=== PATIENT | male | born 1990 | race Caucasian/White ===

== ENCOUNTER 2020-07-09 21:21 | Emergency (ER) | payer OTHER ==
[2020-07-09] MEDS ORDERED: XYLOCAINE 1% HCL 20 ML MDV IJ ONE (21:22)
[2020-07-09] MEDS ORDERED: Erythromycin 3.5 GM OPHTH. OP ONE (21:48)
[2020-07-09] MEDS ORDERED: Rocephin 1000 MG INJ IM ONE (21:51)
--- NOTE | 2020-07-09 21:58 | ERPHSYRPT ---
- History of Present Illness Time Seen by Provider: 07/09/20 21:54 Source: patient Exam Limitations: no limitations Patient Subjective Stated Complaint: pt states "I woke up yesterday and my eye was swollen." Triage Nursing Assessment: pt ambulated into the er; pt is axo x4; c/o eye injury; pt states 4/10 pain to left eye; pt has purlent drainage to left eye; swelling to left eye; pt unable to open left eye; unable to assess eye due to pain and swelling; left eye is red; pt states he is currently on bactrim for a UTI; pt is hypertensive; afebrile; tachycardic Physician History: pt states "I woke up yesterday and my eye was swollen." c/o eye injury; pt states 4/10 pain to left eye; pt has purlent drainage to left eye; swelling to left eye; pt unable to open left eye; unable to assess eye due to pain and swelling; left eye is red; pt states he is currently on bactrim for a UTI; pt is hypertensive; c/o hazzy vision left eye. painful left eyeball Timing/Duration: yesterday Location: left eye Severity: moderate Apparent Injury: possibly Associated Symptoms: pain, burning, sensitivity to light, redness, matting, eyelid swelling, foreign body sensation, decreased vision, blurred vision Visual Assistive Devices: None Chemical Exposure: No Trauma: Yes Welding Arc/Tanning Bed Exposure: No Allergies/Adverse Reactions: No Known Drug Allergies Allergy (Unverified 07/09/20 21:23) Hx Tetanus, Diphtheria Vaccination/Date Given: Yes Hx Influenza Vaccination/Date Given: No Hx Pneumococcal Vaccination/Date Given: No Travel Risk - International Travel Have you traveled outside of the country in past 3 weeks: No - Coronavirus Screening Are you exhibiting any of the following symptoms?: No Close contact with a COVID-19 positive Pt in past 14-21 Days: No - Vaccine Status Have you recieved a Covid-19 vaccination: No - Review of Systems Constitutional: No Symptoms Eyes: Discharge, Eye Pain, Eye Redness, Tearing, Vision Changes, Foreign Body Sensation Ears, Nose, & Throat: No Symptoms Respiratory: No Symptoms Cardiac: No Symptoms Abdominal/Gastrointestinal: No Symptoms Genitourinary Symptoms: No Symptoms Musculoskeletal: No Symptoms Skin: No Symptoms Neurological: No Symptoms Psychological: No Symptoms Endocrine: No Symptoms - Past Medical History Pertinent Past Medical History: No - Past Surgical History Past Surgical History: No - Social History Smoking Status: Current every day smoker Exposure to second hand smoke: Yes Drug Use: methamphetamines Patient Lives Alone: No - Nursing Vital Signs Nursing Vital Signs: Initial Vital Signs Temperature 98.1 F 07/09/20 21:24 Pulse Rate 107 H 07/09/20 21:24 Respiratory Rate 16 07/09/20 21:24 Blood Pressure 156/111 07/09/20 21:24 O2 Sat by Pulse Oximetry 99 07/09/20 21:24 Pain Scale Pain Intensity 4 - Physical Exam General Appearance: mild distress Vision Acuity Degree Evaluation Phase: Uncorrected Vision Acuity Left Eye: hazzy Eye Exam: left eye: exudate, eyelid inflammation, hyphema, sucutaneous orbital emphysema, vision changes Ears, Nose, Throat Exam: normal ENT inspection Neck Exam: normal inspection Respiratory Exam: normal breath sounds Cardiovascular Exam: regular rate/rhythm Gastrointestinal Exam: soft Extremity Exam: normal inspection Neurologic: alert, oriented x 3 SpO2: 99 - Course Nursing assessment & vital signs reviewed: Yes - CT Exams Other CT Interpretation: Tele-radiologist Report (CT orbit) Ordered Tests: Active Orders 24 hr Category Date Time Status ORBITS WITHOUT CONTRAST [CT] Stat Exams 07/09/20 21:48 Taken BMP Stat Lab 07/09/20 22:15 Completed CBC W DIFF Stat Lab 07/09/20 22:15 Completed Manual Differential NC Stat Lab 07/09/20 22:15 Completed Medication Summary Discontinued Medications Generic Name Dose Route Start Last Admin Trade Name Vladq PRN Reason Stop Dose Admin Ceftriaxone Sodium 1,000 mg 07/09/20 21:51 07/09/20 22:08 Rocephin 1000 Mg Inj IM 07/09/20 21:52 1,000 mg STAT ONE Administration Ceftriaxone Sodium Confirm 07/09/20 22:03 Rocephin 1000 Mg Inj Administered 07/09/20 22:04 Dose 1,000 mg .ROUTE .STK-MED ONE Erythromycin 3.5 gm 07/09/20 21:48 07/09/20 22:36 Erythromycin 3.5 Gm Ophth. OP 07/09/20 21:49 3.5 gm STAT ONE Administration Lab/Rad Data: Laboratory Result Diagrams 07/09/20 22:15 07/09/20 22:15 Laboratory Results 07/09/20 07/09/20 Range/Units 22:15 22:15 WBC 13.1 H (4.0-10.5) K/mm3 RBC 5.13 (4.1-5.6) M/mm3 Hgb 15.5 (12.5-18.0) gm/dl Hct 47.6 (42-50) % MCV 92.8 (78-100) fl MCH 30.2 (26-32) pg MCHC 32.6 (32-36) g/dl RDW 13.3 (11.5-14.0) % Plt Count 308 (150-450) K/mm3 MPV 8.7 (7.5-11.0) fl Sodium 139 (137-145) mmol/L Potassium 4.5 (3.5-5.1) mmol/L Chloride 102 (98-107) mmol/L Carbon Dioxide 30 (22-30) mmol/L Anion Gap 12.1 (5-15) MEQ/L BUN 10 (9-20) mg/dL Creatinine 0.91 (0.66-1.25) mg/dL Estimated GFR > 60.0 ML/MIN Glucose 95 (74-106) mg/dL Calcium 9.4 (8.4-10.2) mg/dL - Progress Progress: unchanged Counseled pt/family regarding: lab results, diagnosis, need for follow-up, rad results - Departure Departure Disposition: Home Clinical Impression: Orbital cellulitis on left Dacrocystitis Qualifiers: Laterality: left Qualified Code(s): H04.302 - Unspecified dacryocystitis of left lacrimal passage Condition: Stable Critical Care Time: No Referrals: DOCTOR,NO FAMILY [Primary Care Provider] - Follow Up with PCP/3 days Instructions: Orbital Cellulitis (DC) Additional Instructions: Follow-up with rf design engineer or wheel truer on Saturday MART for further work- up. Please start antibiotic eyedrops as well as oral antibiotic tomorrow. Discharge/Care Plan AYUSH ALEMAN was seen on 07/09/20 in the Emergency Room. The patient was counseled regarding Diagnosis,Lab results, Imaging studies, need for follow up and when to return to the Emergency Room. Prescriptions given: Discharge Note I have spoken with the patient and/or caregivers. I have explained the patient's condition, diagnosis and treatment plan based on the information available to me at this time. I have answered the patient's and/or caregiver's questions and addressed any concerns. The patient and/or caregivers have as good understanding of the patient's diagnosis, condition and treatment plan as can be expected at this point. The vital signs have been stable. The patient's condition is stable and appropriate for discharge from the emergency department. The patient will pursue further outpatient evaluation with the primary care physician or other designated or consulting physician as outlined in the discharge instructions. The patient and/or caregivers are agreeable to this plan of care and follow-up instructions have been explained in detail. The patient and/or caregivers have received these instruction. The patient/and or caregivers are aware that any significant change in condition or worsening of symptoms should prompt an immediate return to this or the closest emergency department or call 911. AYUSH ALEMAN was seen on 07/09/20 n the Emergency Room. At that time you were treated for an emergent condition, during your visit Laboratory, Radiology and/or other procedures may have been ordered. It is very important that you follow-up with your Primary Care Physician NO FAMILY DOCTOR within the next 24- 48 hours to review your Emergency Room visit and the final results of testing that was ordered. Some test results such as Urine Cultures, Blood Cultures, and other cultures if ordered will not be finalized for 24-48 hours. If you do not have a Primary Care Provider please call the medical records department at [phone] to obtain a copy of your results or you may sign into our patient portal to obtain these results by visiting us @ [email or web address] and completing the following steps: 1. Click on the Patient Portal link 2. Click the Patient Self Enrollment Link to complete the enrollment form and entering your 3. Once the enrollment form is completed you will receive an email with a temporary ID and password at the email address you provided. 4. Next choose a user name and password. Your user name must be at least 4 characters long and your password must be at least 4 characters long. 5. Choose a security question from the list and provide your answer to the question. If you already have signed into the Health Portal you may access your Health Care Information 17/09 by the following steps: 1. Login to our website @ [email or web address] 2. Enter your original user name and password. FAQS The [facility] Health Portal is an online tool that contains your Lab Results, Radiology Reports, Visit History, Discharge Instructions and Health Summary Lab and Radiology Results will not be available for 72 hours on the portal. The Portal is a secure site, passwords are encryted and URLs are re-written so they cannot be copied and pasted. You and authorized family members are the only ones who can access your Portal. Also there is a timeout feature that protects your information if you leave the Portal page open. If you have technical difficulty please use the Contact Us link on the page this will allow you to submit any questions you have regarding the Portal or you may contact the Medical Record Department at [phone] ext [phone]. Prescriptions: Ciprofloxacin 0.3% Ophth [Ciloxan OPHTH] 4 drops OP QID #10 bottle Cephalexin Mh 500 mg [Keflex 500 mg] 500 mg PO Q6H #40 capsule
[2020-07-09] MEDS ORDERED: Rocephin 1000 MG INJ ONE (22:03)
[2020-07-09 22:18] LABS: Hematocrit 47.6 % (42-50); Hemoglobin 15.5 gm/dl (12.5-18.0); Mean Cell Volume 92.8 fl (78-100); Mean Corpuscular Hemoglobin 30.2 pg (26-32); Mean Corpuscular Hgb Concent. 32.6 g/dl (32-36); Mean Platelet Volume 8.7 fl (7.5-11.0); Platelet Count 308 K/mm3 (150-450); Red Blood Count 5.13 M/mm3 (4.1-5.6); Red Cell Distribution Width 13.3 % (11.5-14.0); White Blood Count 13.1 K/mm3 (4.0-10.5)
[2020-07-09 22:30] LABS: ANION GAP 12.1 MEQ/L (5-15); BLOOD UREA NITROGEN 10 mg/dL (9-20); CHLORIDE 102 mmol/L (98-107); Calcium 9.4 mg/dL (8.4-10.2); Carbon Dioxide 30 mmol/L (22-30); Creatinine 1 0.91 mg/dL (0.66-1.25); EST GLOMERULAR FILTRATION RATE > 60.0 ML/MIN; Glucose 95 mg/dL (74-106); Potassium 4.5 mmol/L (3.5-5.1); SODIUM 139 mmol/L (137-145)
[2020-07-09 22:53] VITALS: BP 113/76; PULSE 100
[2020-07-09 22:56] VITALS: O2SAT 99
[2020-07-09 23:34] LABS: ATYPICAL LYMPHS 4 %; Eosinophil 5 % (0.00-3.0); Lymphocytes 16 % (24-44); Monocyte 13 % (0.0-12.0); Neutrophils 62 % (36.-66.); Platelet Estimate NORMAL (NORMAL); Total Cells Counted 100
--- NOTE | 2020-07-10 07:03 | XRAY ---
Indication: Left eye swelling with purulent exudate. Eye injury 6 weeks ago. Multiple contiguous axial images obtained through the orbits without contrast. Sagittal and coronal reformatted images obtained. Comparison: None Left eye lid soft tissue swelling/edema without radiopaque foreign body. No acute fracture or suspicious bony lesions. Mild nasal septal deviation to the right. 2 cm right maxillary sinus polyp/retention cyst. Mild mucosal thickening left sphenoid sinus. Remaining visualized soft tissues including base of the brain unremarkable for noncontrast exam. Impression: 1. Soft tissue swelling/edema left eyelid presumed inflammatory/infectious. 2. Negative radiopaque foreign body. 3. Incidental left sphenoid sinus disease and right maxillary sinus polyp/retention cyst. Comment: Preliminary interpretation was made by [facility]. No critical discrepancy.
== END 2020-07-09 22:59 | disposition home or self-care (01) ==
LOC: ED 21:21
DX: H04.302 Unspecified dacryocystitis of left lacrimal passage (principal)
CPT/HCPCS: 36415; 70480; 80048; 85025; 96372; 99284; J0696; A9270-GY

== ENCOUNTER 2021-05-21 22:43 | Emergency (ER) | payer OTHER ==
[2021-05-21] MEDS ORDERED: BENADRYL 50 MG/ML IM ONE (22:59)
[2021-05-21] MEDS ORDERED: Pepcid 20 MG PO ONE (23:00)
[2021-05-21] MEDS ORDERED: solu-MEDROL 125 MG, Sterile H2O 10 ml 2 ML IM ONE ×2 (23:00)
[2021-05-21] MEDS ORDERED: solu-MEDROL ONE (23:02)
[2021-05-21] MEDS ORDERED: Pepcid 20 MG ONE (23:02)
[2021-05-21] MEDS ORDERED: BENADRYL 50 MG/ML ONE (23:02)
[2021-05-21] MEDS ORDERED: Sterile H2O 10 ml IJ ONE (23:02)
--- NOTE | 2021-05-21 23:28 | ERPHSYRPT ---
- History of Present Illness Time Seen by Provider: 05/21/21 22:45 Source: patient, police Exam Limitations: no limitations Patient Subjective Stated Complaint: Patient c/o swollen tongue and left jaw pain. States this started a few hours ago. Triage Nursing Assessment: Patient brought into ED accompanied by an officer. He is alert and oriened and answering questions appropriately. No trouble speaking. No SOB. Tongue does not appear to be swollen at this time. No obvious cavities noted upon examination of mouth. Physician History: 31-year-old incarcerated male is brought in the ER with sudden onset left jaw pain/temporal mandibular joint area pain with some left-sided tongue swelling which started almost 2 hours ago, was given Benadryl prior to arrival and started to improve when currently almost resolved. Patient is complaining of dull aching pain in the left lateral lower jaw. No difficulty speech/swallowing/breathing. Does not take any medication. Timing/Duration: abrupt onset, hours (2) Severity: moderate ENT Location: mouth, facial Prearrival Treatment: over the counter meds Modifying Factors: Improves With: other Associated Symptoms: facial pain/swelling Allergies/Adverse Reactions: No Known Drug Allergies Allergy (Verified 05/21/21 22:45) Hx Tetanus, Diphtheria Vaccination/Date Given: Yes (Maybe not tetanus) Hx Influenza Vaccination/Date Given: No Hx Pneumococcal Vaccination/Date Given: No Immunizations Up to Date: Yes Travel Risk - International Travel Have you traveled outside of the country in past 3 weeks: No - Coronavirus Screening Are you exhibiting any of the following symptoms?: No Close contact with a COVID-19 positive Pt in past 14-21 Days: Yes - Vaccine Status Have you recieved a Covid-19 vaccination: No - Review of Systems Constitutional: No Symptoms Eyes: No Symptoms Ears, Nose, & Throat: Mouth Pain, Mouth Swelling Respiratory: No Symptoms Cardiac: No Symptoms Abdominal/Gastrointestinal: No Symptoms Genitourinary Symptoms: No Symptoms Musculoskeletal: No Symptoms Skin: No Symptoms Neurological: No Symptoms Hematologic/Lymphatic: No Symptoms Immunological/Allergic: No Symptoms - Past Medical History Pertinent Past Medical History: No ENT History: Glaucoma - Past Surgical History Past Surgical History: No - Social History Smoking Status: Current every day smoker How long have you smoked: 15 years Exposure to second hand smoke: No Drug Use: methamphetamines Patient Lives Alone: No - Nursing Vital Signs Nursing Vital Signs: Initial Vital Signs Temperature 97.1 F 05/21/21 22:47 Pulse Rate 105 H 05/21/21 22:47 Respiratory Rate 20 05/21/21 22:47 Blood Pressure 152/91 05/21/21 22:47 O2 Sat by Pulse Oximetry 97 05/21/21 22:47 Pain Scale Pain Intensity 3 - Physical Exam General Appearance: no apparent distress, alert Eye Exam: bilateral eye: normal inspection, PERRL, EOMI Ear Exam: bilateral ear: auricle normal, canal normal, TM normal Nasal Exam: normal inspection Throat Exam: normal, pharynx normal, moist mucus membranes, No tongue swollen (Minimal tenderness left TMJ area) Neck Exam: normal inspection, non-tender, supple, full range of motion Cardiovascular/Respiratory Exam: chest non-tender, normal breath sounds, regular rate/rhythm Neurologic Exam: alert, oriented x 3, cooperative, 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, normal mood/affect Skin Exam: normal color SpO2 Interpretation: normal SpO2: 97 O2 Delivery: Room Air Ordered Tests: Medication Summary Discontinued Medications Generic Name Dose Route Start Last Admin Trade Name Vladq PRN Reason Stop Dose Admin Methylprednisolone Sodium 0 mg 05/21/21 23:00 05/21/21 23:13 Succinate 125 mg/ Sterile IM 05/21/21 23:01 125 mg Water 2 ml STAT ONE Administration Diphenhydramine HCl 25 mg 05/21/21 22:59 05/21/21 23:14 Diphenhydramine Hcl 50 Mg/Ml Vial IM 05/21/21 23:00 25 mg STAT ONE Administration Diphenhydramine HCl Confirm 05/21/21 23:02 Diphenhydramine Hcl 50 Mg/Ml Vial Administered 05/21/21 23:03 Dose 50 mg .ROUTE .STK-MED ONE Famotidine 40 mg 05/21/21 23:00 05/21/21 23:07 Famotidine 20 Mg Tablet PO 05/21/21 23:01 40 mg STAT ONE Administration Famotidine Confirm 05/21/21 23:02 Famotidine 20 Mg Tablet Administered 05/21/21 23:03 Dose 40 mg .ROUTE .STK-MED ONE Methylprednisolone Sodium Succinate Confirm 05/21/21 23:02 Methylprednis Sod Succ 125 Mg/2 Ml Vial Administered 05/21/21 23:03 Dose 125 mg .ROUTE .STK-MED ONE Sterile Water Confirm 05/21/21 23:02 Water For Injection,Sterile 10 Ml Vial Administered 05/21/21 23:03 Dose 10 ml IJ .STK-MED ONE - Progress Progress: improved Progress Note: 05/21/21 given Solu-Medrol/Benadryl/Pepcid and does not have any swelling or difficulty breathing/swallowing/speech. We will continue with these meds to go home and outpatient follow-up recommended. Counseled pt/family regarding: diagnosis, need for follow-up - Departure Departure Disposition: Home Clinical Impression: Mild tongue swelling Condition: Stable Critical Care Time: No Referrals: LUCILA RIOS DATABASE ANALYST [Primary Care Provider] - Follow up/PCP as directed (1-2 days for reevaluation) Instructions: Angioedema (DC) Additional Instructions: Take Benadryl as needed. Follow-up with primary care for reevaluation. Return to ER if having tongue swelling, difficulty swallowing/speech/breathing. Prescriptions: Diphenhydramine HCl 25 mg [Benadryl 25 mg Capsule] 25 mg PO Q4H PRN PRN #20 cap PRN Reason: Allergies Prednisone 20 mg [Deltasone 20 mg] 60 mg PO DAILY 5 Days #15 tablet Famotidine 20 mg [Pepcid 20 MG] 20 mg PO BID #10 tablet
[2021-05-21 23:46] VITALS: BP 147/94; PULSE 100; O2SAT 98
== END 2021-05-22 00:08 | disposition home or self-care (01) ==
LOC: ED 22:43
DX: R22.0 Localized swelling, mass and lump, head (principal); M26.622 Arthralgia of left temporomandibular joint; Z72.0 Tobacco use; Z79.52 Long term (current) use of systemic steroids
CPT/HCPCS: 96372; 99284; J1200; J2930; A9270-GY